=== PATIENT | female | born 1970 | race Caucasian/White ===

== ENCOUNTER 2016-09-09 10:40 | Inpatient (IN) | payer BC ==
[2016-09-02 09:50] LABS: HEMOGLOBIN 11.5 g/dL (12.0-16.0)
[2016-09-02 09:52] LABS: HEMATOCRIT 35.4 % (36.0-48.0)
[2016-09-02 10:02] LABS: BUN (BLOOD UREA NITROGEN) 7 MG/DL (6-23); CALCIUM, SERUM 8.6 MG/DL (8.5-10.4); CHLORIDE, SERUM 101 MMOL/L (96-112); CO2 (CARBON DIOXIDE) 29 MMOL/L (24-34); CREATININE 0.59 MG/DL (0.55-1.02); GFR AFRICAN AMERICAN 128 ML/MIN (>=60); GFR NON AFRICAN AMERICAN 111 ML/MIN (>=60); POTASSIUM, SERUM 3.4 MMOL/L (3.5-5.3); SODIUM, SERUM 137 MMOL/L (135-148)
[2016-09-02 10:05] LABS: GLUCOSE, SERUM 105 MG/DL (60-99)
--- NOTE | ~2016-09-09 | HP ---
History And Physical [place] [id number] [facility] [place]. [address] NAME: ASHER LOPEZ : 70 STATUS : DIS IN PAT#: [id number] AGE: 45 ADM/REG DATE : 09/09/16 MR#: [id number] REPORT SERV DATE: 09/26/16 DICTATED BY: PEDRO FONSECA DATE: 09/25/16 REPORT STATUS : Draft TRANSCRIBED BY: MODL DATE: 09/25/16 DATE OF ADMISSION: 09/09/2016 CHIEF COMPLAINT: Parastomal hernia and large panniculus. HISTORY: The patient had presented with multiple parastomal hernias. She is having some increasing pain and increasing size and also has problems with the panniculus which hangs way down and she is presenting for repair of this and also for treatment of the panniculus in order to improve abdominal wall contour for need for future stomas and also for hygiene. PAST MEDICAL HISTORY: Crohn's, parastomal hernia, ileostomy, ventral hernia, pyoderma. PREVIOUS SURGERIES: Transperineal resection of the rectum, total colectomy, hernia repairs, multiple stoma revisions, and parastomal hernia repair. SOCIAL HISTORY: Negative for tobacco or ethanol abuse. REVIEW OF SYSTEMS: Negative for chest pain or shortness of breath. PHYSICAL EXAMINATION: GENERAL: She is awake, alert, and well appearing. HEENT: She has moist mucous membranes. There is no use of accessory muscles of breathing. CHEST: Clear. HEART: Regular rhythm and rate without murmurs. ABDOMEN: Soft, but there is a large parastomal hernia in the left abdomen with pyoderma and a large panniculus. IMPRESSION: Large parastomal hernia and panniculus and also pyoderma. In-depth stoma revision and parastomal hernia repair with panniculectomy was offered to her and we will proceed. TONJA/PINA Jhon Fonseca M.D. / [id number] CC: Jhon Fonseca M.D.
--- NOTE | ~2016-09-09 | OP ---
Record Of Operation [facility] [address] [place]. [address] NAME: ASHER LOPEZ : 70 STATUS : ADM IN PAT#: [id number] AGE: 45 ADM/REG DATE : 09/09/16 MR#: [id number] REPORT SERV DATE: 09/10/16 DICTATED BY: PEDRO FONSECA DATE: 09/09/16 REPORT STATUS : Draft TRANSCRIBED BY: MODSaundra DATE: 09/09/16 DATE OF PROCEDURE: 09/09/2016 PREOPERATIVE DIAGNOSES: 1. Lipodystrophy. 2. Parastomal hernia. 3. Crohn disease. POSTOPERATIVE DIAGNOSIS: 1. Lipodystrophy. 2. Parastomal hernia. 3. Crohn disease. PROCEDURE PERFORMED: 1. Panniculectomy. 2. Open repair of parastomal hernia. 3. Re-siting and revision of end-ileostomy. SURGEON: Jhon Fonseca M.D. FELLOW: Avi Chaudhary M.D. RESIDENT: Raisa Klein M.D. COMPLICATIONS: None. ANESTHESIA: General endotracheal tube anesthesia plus TAP blocks. SPECIMENS: 1. Hernia sac. 2. Pannus. ESTIMATED BLOOD LOSS: 180 mL. DRAINS: 1. BETI drain x4 under the pannus. 2. BETI drain x1 at old ostomy site. INDICATIONS FOR PROCEDURE: This is a 45-year-old female with history of Crohn's disease, multiple parastomal hernia repairs who presents with another parastomal hernia. Due to the size of her pannus, she has had significant pouching issues and additionally has developed pyoderma gangrenosum around her current ostomy site on the left side. She desires panniculectomy and resiting of old ostomy due to the parastomal hernia. Risks, benefits, and alternatives were explained to the patient who understood these and consented to undergo repair. Record Of Operation [facility] [address] [place]. [address] NAME: ASHER LOPEZ : 70 STATUS : ADM IN PAT#: [id number] AGE: 45 ADM/REG DATE : 09/09/16 MR#: [id number] REPORT SERV DATE: 09/10/16 DICTATED BY: PEDRO FONSECA DATE: 09/09/16 REPORT STATUS : Draft TRANSCRIBED BY: PINA DATE: 09/09/16 DESCRIPTION OF PROCEDURE: The patient was brought to the operating room, placed in the supine position where general anesthetic was administered. SCDs were placed and turned on, and a Roblero catheter was placed sterilely. The patient was secured to the bed with her arms out. A preprocedure time-out was called and agreed upon. Her abdomen was prepped and draped sterilely around the left-sided ileostomy site. Using a scalpel, the ostomy was from the skin at the mucocutaneous junction. We were able to use sharp dissection electrocautery to dissect the ostomy free from the subcutaneous tissues elevating and enough to fire a stapler across in order to close the ostomy and delivered back into the abdomen. After this dirty procedure, the drapes were pulled and the patient was re-prepped and redraped sterilely. A previously marked panniculectomy site was incised using a scalpel. Electrocautery was used to dissect down to the fascial layer and remove the pannus from the patient. Large vessels were ligated using 3-0 Vicryl ties. The bleeding was minimal. We were able to take the excess fat down to the layer of the anterior abdominal wall and removed it using electrocautery. We then laid four BETI drains, two inferior and two superior on either side of the midline, anterior to the fascia and closed Mj's layer using 2-0 Vicryl sutures in continuous running fashion. Subcutaneous layers were closed in two layers using 2-0 Vicryl sutures. We then ran a 2-0 Vicryl deep dermal suture in continuous fashion to close the dermis. The skin defect was then closed using a 2-0 Quill suture in continuous subcuticular fashion. The closure was reinforced using meagan placed roughly 2-3 cm apart. At this point, we covered the panniculectomy site and repair and placed the BETI drains to suction which was adequate. We then turned our attention back to the ileostomy site. Electrocautery and sharp dissection were used to dissect all of the adhesions within the hernia sac down to the layer of the fascia. Once we were able to circumferentially release the ileostomy from its attachments, it was returned to the abdomen. The intended ileostomy site on the right side was then created using electrocautery in circular fashion in order to accommodate the ostomy. Electrocautery was used to dissect down to the anterior rectus sheath which was divided with the Bovie. Muscle was split, and the posterior sheath was opened in a similar direction. We then created a cruciate incision by making additional incision through the anterior and posterior fascia in a transverse fashion. There was adequate space for two fingerbreadths as well as the ostomy to pass. Alexandre was placed through the defect, and the end of the staple line was grasped and delivered through the defect which delivered easily. We then secured the bowel in order to prevent from retracting back into the abdomen. We then turned our attention back to the parastomal hernia. The hernia sac was removed down to the level of the hernia defect in the anterior fascia using electrocautery. This was done circumferentially, and the specimen was sent to surgical pathology. We then the anterior and posterior fascia layers from the rectus muscle and closed these individually using 0 PDS suture in continuous running fashion on the posterior layer and then [id number] fashion on the anterior layer. There was an adequate repair of the defect, and we closed this longitudinally. Given the massive space that was going to be left by the hernia, we elected to place a BETI drain within this cavity. Subcutaneous tissues were closed using 3-0 Vicryl, and the skin was closed using staplers. Suction was adequate at the conclusion of the case. We then turned our attention back to the ileostomy site in the right upper quadrant. We then matured the ostomy in standard Sharon fashion using 3-0 chromic sutures in the cardinal directions with full- thickness intervening sutures between. There was adequate prolapse of the ostomy. Hemostasis throughout the case was adequate. We then placed a stoma appliance and dressed all incisions sterilely. The patient tolerated the procedure well. All needle, lap, and Record Of Operation [address] [place]. [address] NAME: ASHER LOPEZ : 70 STATUS : ADM IN [facility]#: [id number] AGE: 45 ADM/REG DATE : 09/09/16 MR#: [id number] REPORT SERV DATE: 09/10/16 DICTATED BY: PEDRO FONSECA DATE: 09/09/16 REPORT STATUS : Draft TRANSCRIBED BY: MODL DATE: 04/05/17 instrument counts were [address]. Dr. Fonseca was scrubbed and present for the duration of procedure. DICTATED BY: MD MEGAN Carranza/PINA Jhon Fonseca M.D. / [id number] CC: Jhon Fonseca M.D.
[~2016-09-09 10:40] MED LIST: AMB10 PO; ATV1 PO; B12100T PO; CYMBALTA60 PO; DURA25 TOP; FESO4 PO; FLEX PO; FOLIC PO; HYZAAR 100/25 T1 TAB PO; JANUVIA50 PO; KLONO1 PO; LEXAPRO10 PO; LORT7 PO; MERCAPTOPUR50 MG PO; MIRAPEX1 MG PO; NORCO1 TA1 PO; NORCO1 TA2 PO; P10 PO; P20 PO; PCET PO; PT TAKES NO MEDS; REMICADE IV; SPIRO50 PO; TUMSROLL PO; TYLENOL PM PO; VICODIN HP1 TAB PO; VITAMIN D31000 UNIT PO
[2016-09-10 06:36] LABS: BASOPHILS 0.1 %; BASOPHILS ABSOLUTE 0.02 10/3/uL (0.0-0.16); EOSINOPHILS 0 %; HEMATOCRIT 32.2 % (36.0-48.0); HEMOGLOBIN 10.4 g/dL (12.0-16.0); IMMATURE GRANULOCYTES 0.6 %; LYMPHOCYTES 6.4 %; LYMPHOCYTES ABSOLUTE 1.03 10/3/uL (0.67-4.30); MEAN CORPUS HGB CONC 32.3 g/dL (32.0-36.0); MEAN CORPUSCULAR HEMOGLOB 28.7 pg (26.0-34.0); MONOCYTES 4.5 %; MONOCYTES ABSOLUTE 0.72 10/3/uL (0.21-1.20); NEUTROPHILS 88.4 %; NEUTROPHILS ABSOLUTE 14.15 10/3/uL (2.02-8.40); PLATELET COUNT 365 10/3/uL (150-400); RBC DISTRIBUTION WIDTH 15.7 % (12.0-16.0); RED CELL COUNT 3.62 10/6/uL (4.0-5.6)
[2016-09-10 06:46] LABS: BUN (BLOOD UREA NITROGEN) 9 MG/DL (6-23); CALCIUM, SERUM 8.1 MG/DL (8.5-10.4); CHLORIDE, SERUM 104 MMOL/L (96-112); CREATININE 0.68 MG/DL (0.55-1.02); GFR AFRICAN AMERICAN 122 ML/MIN (>=60); GFR NON AFRICAN AMERICAN 106 ML/MIN (>=60); POTASSIUM, SERUM 3.5 MMOL/L (3.5-5.3); SODIUM, SERUM 140 MMOL/L (135-148)
[2016-09-10 06:47] LABS: CO2 (CARBON DIOXIDE) 24 MMOL/L (24-34); GLUCOSE, SERUM 191 MG/DL (60-99); MANUAL DIFF NO %
[2016-09-11] MEDS ORDERED: PCET PO (08:57)
== END 2016-09-11 12:13 | disposition home or self-care (01) | DRG 629 ==
LOC: SDC/OF 10:40 → 5SO 21:13
PROVIDERS: Colon & Rectal Surgery
PROC: 0WQF0ZZ Repair Abdominal Wall, Open Approach (ICD-10-PCS; 2016-09-09)
PROC: 0WBF0ZZ Excision of Abdominal Wall, Open Approach (ICD-10-PCS; principal; 2016-09-09 12:45)
DX: E88.1 Lipodystrophy, not elsewhere classified (principal); L88 Pyoderma gangrenosum; K50.00 Crohn's disease of small intestine without complications; Z68.41 Body mass index [BMI] 40.0-44.9, adult; E66.9 Obesity, unspecified; K43.5 Parastomal hernia without obstruction or gangrene; Z88.0 Allergy status to penicillin; Z79.899 Other long term (current) drug therapy
CPT/HCPCS: 80048; 82962; 84703; 85014; 85018; 85025; 88302; 88305; 93005; 97161-GP; A9270-GY; C9113; J0690; J1170; J1885; J1956; J2250; J2370; J2405; J2710; J2795; J3010; P9045